=== PATIENT | male | born 1980 | race Caucasian/White ===

== ENCOUNTER 2016-10-22 20:27 | Emergency (ER) | payer BC ==
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
--- NOTE | 2016-10-22 22:01 | ED ORDER SUMMARY ---
..... Patient: LAMAR FORMAN OrderSheet [facility] VisitID: [id number] [place] [address] 36y, M Registration Date/Time: 10/22/2016 ORDER SHEET Weight: 101.6 kg (stated) Allergies: No Known Drug Allergy GENERAL ORDERS: Finger Right (thumb) (trauma to right thumb, unable to bend) Urgent (21:11 10/22/2016 Laura DUNCAN) (21:20 RFay) Splint (Finger) (Right) (Thumb) (thumb spica splint in position of function) (21:44 10/22/2016 Laura DUNCAN) ([facility] 21:52 Roxanne Quality Control Clerk) (22:07 Ayad Ayoub) MEDICATION ORDERS: IV FLUIDS: ORDER SHEET NOTES: [Electronically signed by Roni Fletcher R.N. (22:16 10/22/2016)] [Electronically signed by Loan Randolph PA-C (01:23 10/23/2016)] [Electronically locked/signed by Roni Fletcher R.N. (22:16 10/22/2016)]
--- NOTE | 2016-10-22 22:01 | ED ORDER SUMMARY ---
..... Patient: LAMAR FORMAN OrderSheet [facility] VisitID: [id number] [place] [address] 36y, M Registration Date/Time: 10/22/2016 ORDER SHEET Weight: 101.6 kg (stated) Allergies: No Known Drug Allergy GENERAL ORDERS: Finger Right (thumb) (trauma to right thumb, unable to bend) Urgent (21:11 10/22/2016 Laura DUNCAN) (21:20 RFay) Splint (Finger) (Right) (Thumb) (thumb spica splint in position of function) (21:44 10/22/2016 Laura DUNCAN) ([facility] 21:52 Roxanne Hog Driver) (22:07 Ayad Ayoub) MEDICATION ORDERS: IV FLUIDS: ORDER SHEET NOTES: [Electronically signed by Roni Fletcher R.N. (22:16 10/22/2016)] [Electronically signed by Loan Randolph PA-C (01:23 10/23/2016)] [Electronically locked/signed by Roni Fletcher R.N. (22:16 10/22/2016)]
--- NOTE | 2016-10-22 22:31 | DIAGNOSTIC IMAGING REPORT ---
PROCEDURE: XR FINGER - RIGHT (thumb). INDICATION: TRAUMA/INJURY TECHNIQUE: Three views. COMPARISON: None. FINDINGS: There is a nondisplaced intra-articular cortical fracture of the ulnar base of the proximal phalanx, right thumb. The rest the osseous structures and joint spaces are normal. IMPRESSION: 1. Nondisplaced intra-articular fracture, base of the proximal phalanx, right thumb. 2. Findings discussed with HUSEYIN Christianson.
--- NOTE | 2016-10-23 01:24 | ED MED RECONCILIATION SUMMARY ---
Patient: LAMAR FORMAN Medication Reconciliation Report [facility] VisitID: [id number] [address] [place] [address] 36y, M Registration Date/Time: 10/22/2016 Weight: 101.6 kg Height/Length: 68 in. BMI: 34.1 ALLERGIES: No Known Drug Allergy The patient's Home Medications are listed below: CONTINUE TAKING THE FOLLOWING MEDICATIONS: Amitriptyline HCl Oral Atenolol Oral Brintellix Oral Xanax Oral The source(s) of the original Home Medication information: patient The following Medications were given to the patient in the Emergency Department: None. The following Medications were prescribed to the patient: Hydrocodone/APAP 5mg / 325mg: take 1 orally every 6 hours as needed for pain. Dispense ten (10). No refill. -- Loan Randolph PA-C
--- NOTE | 2016-10-23 01:24 | ED DISCHARGE INSTRUCTIONS ---
Patient: LAMAR FORMAN General Instructions [facility] VisitID: [id number] [place] [address] 36y, M Registration Date/Time: 10/22/2016 Closed nondisplaced proximal phalanx fracture of the right thumb. Single first degree thermal burn to the right hand and to the right index finger. BSA of 1st degree burn = 0%. (tip). INSTRUCTIONS Apply ice. Elevate affected areas above chest level. Wear fiberglass splint for two weeks until released. Limit use of your right hand for three days. No dietary restrictions. Warnings: COMPLICATIONS: Complications from this condition are possible. Future problems may include infection, pain and poor fracture healing. INFECTION: Watch for signs of infection (increasing heat and redness, pus-like drainage, swelling, or increased pain). Return or see your doctor if these signs occur. It is important to follow up with a physician for further evaluation and treatment. Your Current Medications: CONTINUE TAKING THE FOLLOWING MEDICATIONS: Amitriptyline HCl Oral. Atenolol Oral. Brintellix Oral. Xanax Oral. Prescription Medications: Hydrocodone/APAP 5mg / 325mg: take 1 orally every 6 hours as needed for pain. Dispense ten (10). No refill. Follow-up: Follow up with an orthopedic surgeon- as recommended by your primary care physician. Reason for referral: proximal thumb fracture. Understanding of the discharge instructions verbalized by patient. ADDITIONAL INFORMATION Fracture:Thumb [Closed] You have fractured (broken) your thumb. This causes local pain, swelling and sometimes bruising. This injury will take about four weeks to heal. Thumb fractures may be treated with a splint or cast. This protects the thumb and holds the bone in place while it heals. More serious fractures may require surgery. If the thumb nail has been severely injured, it may fall off in 1-2 weeks. A new thumb nail will usually start to grow back within a month. Home Care: 1) Keep your arm elevated to reduce pain and swelling. When sitting or lying down elevate your arm above the level of your heart. You can do this by placing your arm on a pillow that rests on your chest or on a pillow at your side. This is most important during the first 48 hours after injury. 2) Apply an ice pack (ice cubes in a plastic bag, wrapped in a towel) over the injured area for 20 minutes every 1-2 hours the first day. Continue with ice packs 3-4 times a day for the next two days, then as needed for the relief of pain and swelling. 3) If a SPLINT was applied, leave this in place for the time advised. This will prevent the bones from moving out of position. 4) Keep the cast/splint completely dry at all times. Bathe with your cast/splint out of the water, protected with a large plastic bag, rubber-banded at the top end. If a fiberglass cast/splint gets wet, you can dry it with a hair-dryer. 5) You may use acetaminophen (Tylenol) or ibuprofen (Motrin, Advil) to control pain, unless another pain medicine was prescribed. [ NOTE : If you have chronic liver or kidney disease or ever had a stomach ulcer or GI bleeding, talk with your doctor before using these medicines.] Follow Up with your doctor in one week, or as advised by our staff, to be sure the bone is healing properly. Talk to your doctor about when it is safe to return to sports or work activity. [NOTE: Any X-rays taken will be reviewed by a radiologist. You will be notified of any new findings that may affect your care.] Get Prompt Medical Attention if any of the following occur: -- The plaster cast or splint becomes wet or soft -- The fiberglass cast or splint remains wet for more than 24 hours -- Pain or swelling increases -- Redness or warmth in the hand -- Fingers or hand become cold, blue, numb or tingly Splint Care, Fiberglass The following will help you care for your splint: It will take up totwo hours for your fiber glass splint to fully harden; therefore, do notapply any pressure on it during that time or else it may break. To prevent swelling under the splint, for thefirst 48 hours: If the splint is on yourarm, keep it in a sling or raised to shoulder level when sitting or standing; rest it on your chest or on a pillow at your side when lying down. If the splint is on yourfoot, keep it propped up above the level of your waist when sitting or lying. Avoid crutch walking as much as possible during this time. Keep the splint/cast dry at all times. Bathe with your splint/cast well out of the water, protected with a large plastic bag, rubber-banded at the top end. If a fiberglass cast or splint gets wet, you can dry it with a hair-dryer. Follow-up care Follow up with your doctor or this facility as advised. When to seek medical care Get prompt medical attention if any of the following occur: Bad odor from the splint or wound-fluid stains the splint The splint cracks or remains wet over 24 hours Increasing tightness or pressure under the splint Fingers or toes become swollen, cold, blue, numb or tingly Increased pain under the splint You have been given the following additional information: Fracture, Thumb Splint Care, Fiberglass Limit use of your right hand for three days. (Electronically signed by Loan Randolph PA-C 10/23/2016 1:23)
--- NOTE | 2016-10-23 01:24 | ED MAR SUMMARY ---
..... Medication Administration Record [facility] [address] [place], [place] [id number] Patient: LAMAR FORMAN Visit ID: [id number] 36y, M Weight: 101.6 kg Height/Length: 68 in BMI: 34.1 ALLERGIES: No Known Drug Allergy
--- NOTE | 2016-10-23 01:24 | ED MAR SUMMARY ---
..... Medication Administration Record [facility] [address] [place], [place] [id number] Patient: LAMAR FORMAN Visit ID: [id number] 36y, M Weight: 101.6 kg Height/Length: 68 in BMI: 34.1 ALLERGIES: No Known Drug Allergy
--- NOTE | 2016-10-23 01:24 | ED MED RECONCILIATION SUMMARY ---
Patient: LAMAR FORMAN Medication Reconciliation Report [facility] VisitID: [id number] [address] [place] [address] 36y, M Registration Date/Time: 10/22/2016 Weight: 101.6 kg Height/Length: 68 in. BMI: 34.1 ALLERGIES: No Known Drug Allergy The patient's Home Medications are listed below: CONTINUE TAKING THE FOLLOWING MEDICATIONS: Amitriptyline HCl Oral Atenolol Oral Brintellix Oral Xanax Oral The source(s) of the original Home Medication information: patient The following Medications were given to the patient in the Emergency Department: None. The following Medications were prescribed to the patient: Hydrocodone/APAP 5mg / 325mg: take 1 orally every 6 hours as needed for pain. Dispense ten (10). No refill. -- Loan Randolph PA-C
== END 2016-10-22 22:14 | disposition home or self-care (01) ==
LOC: ED SRH 20:27
DX: S62.514A Nondisplaced fracture of proximal phalanx of right thumb, initial encounter for closed fracture (principal); F31.9 Bipolar disorder, unspecified; X58.XXXA Exposure to other specified factors, initial encounter; T23.121A Burn of first degree of single right finger (nail) except thumb, initial encounter; T31.0 Burns involving less than 10% of body surface; W40.1XXA Explosion of explosive gases, initial encounter; Y93.89 Activity, other specified; Y92.009 Unspecified place in unspecified non-institutional (private) residence as the place of occurrence of the external cause; Y99.9 Unspecified external cause status; I10 Essential (primary) hypertension